=== PATIENT | male | born 1970 | race Caucasian/White ===

== ENCOUNTER 2022-01-23 21:02 | Outpatient (CLI) | payer OTHER, SELFPAY | END 2022-01-23 21:03 | disposition home or self-care (01) | LOC: AMB 03-16 19:43 | PROVIDERS: PCP Family Medicine; Visit Provider Internal Medicine | DX: S29.9XXA Unspecified injury of thorax, initial encounter (principal); V40.0XXA Car driver injured in collision with pedestrian or animal in nontraffic accident, initial encounter; Y92.410 Unspecified street and highway as the place of occurrence of the external cause | CPT/HCPCS: A0427; A0998 ==

== ENCOUNTER 2023-02-27 10:39 | Outpatient (CLI) | payer OTHER, SELFPAY | END 2023-02-27 10:40 | disposition home or self-care (01) | PROVIDERS: PCP Family Medicine; Visit Provider Family Medicine | DX: Z00.00 Encounter for general adult medical examination without abnormal findings (principal); I10 Essential (primary) hypertension; E78.5 Hyperlipidemia, unspecified; E03.9 Hypothyroidism, unspecified; Z12.5 Encounter for screening for malignant neoplasm of prostate | CPT/HCPCS: 80053; 80061; 84153; 84443 ==

== ENCOUNTER 2024-04-07 11:36 | Outpatient (CLI) | payer OTHER, SELFPAY | END 2024-04-07 11:37 | disposition home or self-care (01) | PROVIDERS: PCP Family Medicine; Visit Provider Family Medicine | DX: E78.2 Mixed hyperlipidemia (principal); E03.9 Hypothyroidism, unspecified; I10 Essential (primary) hypertension | CPT/HCPCS: 80048; 80061; 84439; 84443 ==

== ENCOUNTER 2024-09-18 11:43 | Outpatient (CLI) | payer OTHER, SELFPAY ==
--- NOTE | 2024-09-30 12:32 | W.PM.SLEEP ---
Sleep Study Details Details Interpreting Provider: Davis Date of Sleep Study: 09/18/24 Sleep Study Details: STUDY TYPE:? Home unattended ? BMI:? 43.6 ORDERING PROVIDER:? Davis INDICATION:? Concerned about sleep apnea ? SLEEP SUMMARY:? 388 minutes monitored RESPIRATORY SUMMARY:? AHI 48.9, low oxygen 70 50.4% of the study oxygen less than 90% snoring 79.4% PERIODIC LIMB MOVEMENTS OF SLEEP:? Not recorded CARDIAC:? Range 60-129, mean 84.9 beats per minute IMPRESSION:? Tachycardia noted during study further evaluation the heart may be indicated Severe obstructive sleep apnea with significant hypo oxygenation and significant obesity. Patient may have hypoventilation. RECOMMENDATION: In-lab titration for CPAP or BiPAP. Further cardiac evaluation may be indicated.
== END 2024-09-18 11:44 | disposition home or self-care (01) ==
PROVIDERS: PCP Family Medicine; Visit Provider Otolaryngology
DX: G47.33 Obstructive sleep apnea (adult) (pediatric) (principal); R00.0 Tachycardia, unspecified; E66.9 Obesity, unspecified
CPT/HCPCS: 95806

== ENCOUNTER 2024-10-17 16:01 | Emergency (ER) | payer OTHER, SELFPAY ==
[2024-10-17 16:12] VITALS: BP 128/78; PULSE 103; RESP 16; TEMP 36.3; O2SAT 96; BMI 42.2
[2024-10-17 16:42] LABS: Appearance Urine Clear (Clear)
--- NOTE | 2024-10-17 17:30 | CRLHL7_ITS ---
For Patients: As a result of the Century Cures Act, medical imaging exams and procedure reports are released immediately into your electronic medical record. You may view this report before your referring provider. If you have questions, please contact your health care provider. INDICATION: Right abdomen pain. TECHNIQUE: Ultrasound abdomen limited. Sonographic images of the right upper quadrant were obtained using nash-scale and color Doppler images. COMPARISON: None. FINDINGS: Liver: Diffusely hyperechoic hepatic parenchyma with a region of relative central isoechoic sparing. No suspicious masses. No intrahepatic biliary dilatation. Gallbladder: No stones or sludge. Normal wall thickness. No pericholecystic fluid. Common bile duct: 2 mm. Pancreas: Unremarkable, where visualized. Right kidney: Normal in size. Normal echotexture and cortex. No suspicious masses, stones, or hydronephrosis. IMPRESSION: Diffusely hyperechoic hepatic parenchyma, compatible with steatosis. As noted above, there is a region of isoechoic signal centrally within the liver, likely reflecting focal fatty sparing. Dictated by Juliano Arauz MD @ 10/17/2024 6:37:05 PM (Electronically Signed)
--- NOTE | 2024-10-17 17:38 | ED.GENADULT ---
HPI - General Adult General Date Seen: 10/17/24 Chief complaint: Abdominal Pain Stated complaint: abdominal pain Time Seen by Provider: 10/17/24 17:07 History of Present Illness HPI narrative: Patient is a 54-year-old male with underlying sleep apnea, hypertension, high cholesterol, tachycardia who is here with his family for evaluation of right-sided abdominal pain which started a couple of days ago. He says that he is sure it is a pulled muscle. The day before it started he had lifted heavy lawnmower. He does not remember specifically injuring it but symptoms started the next day. His is concerned because he has not had much energy in the past day or 2. She says that he slept 18 hours yesterday. She notes that he does sleep and nap a lot secondary to his suspected sleep apnea, but this seemed excessive. Initially when I asked him about nausea, loss of appetite etcetera, he denied those. However his says that he did note some nausea, and he then acknowledge that he has not yet eaten today(presents to the ER at 5:00 p.m.) because he has not had an appetite. He also acknowledges that this is unusual for him. He has not had a fever. He has had a little bit of urinary frequency but no dysuria. He denies abdominal surgeries. He does not smoke, drinks occasionally. Related Data Previous Rx's ?Medication ?Instructions ?Recorded atorvastatin 20 mg tablet 20 mg PO QPM #90 tabs 09/16/24 citalopram 40 mg tablet 40 mg PO QDAY #90 tabs 09/16/24 esomeprazole magnesium 20 mg 20 mg PO DAILY #90 caps 09/16/24 capsule,delayed release levothyroxine 175 mcg tablet 175 mcg PO QDAY #90 tabs 09/16/24 lisinopril 40 mg tablet 40 mg PO QDAY #90 tabs 09/16/24 phentermine 30 mg capsule 30 mg PO QDAY #90 caps 09/16/24 Allergies Allergy/AdvReac Type Severity Reaction Status Date / Time No Known Drug Allergies Allergy Verified 10/17/24 16:11 Review of Systems Status of ROS: Reports: 10 or more systems reviewed and unremarkable except as noted in History and below [facility] Medical History Temporal arteritis ?M31.6 - Other giant cell arteritis (ICD-10) Family History Unknown Diabetes Social History What is your current living situation?: I presently have a place to live Problems where you live: no known problems In the past 12 months, utilities in danger of being shut off: no In past 12 months, lack of transportation kept you from medical appts, meetings, work, or getting things needed for daily living: no In the past 12 mos, have been you worried that your food would run out before you had money to buy more?: never true In the past 12 mos, the food you bought just didn't last and you didn't have money to buy more?: never true Smoking Status: Never smoker How often do you have a drink containing alcohol: never AUDIT-C Alcohol total score: 0 Non-prescribed substance use: denies use How often does anyone, including family, friends and others, physically hurt you: never How often does anyone, including family, friends and others, insult or talk down to you: never How often does anyone, including family, friends and others, threaten you with harm: never How often does anyone, including family, friends and others, scream or curse at you: never Exam Narrative: Exam Narrative: Vital signs reviewed In general, alert, nontoxic med age male. He is significantly overweight. Head: Normocephalic, atraumatic. Eyes: Sclera clear. Pupils equal and reactive. ENT: Mucous membranes moist. Neck: Supple without adenopathy. Heart: Regular rate and rhythm without murmur. Lungs: Clear. No increased work of breathing, crackles or wheezes. Abdomen: Abdomen is obese, soft. Exam is somewhat limited by body habitus. He has right-sided abdominal tenderness, this is significantly above McBurney's point but slightly below the ribcage. He has a negative Andrews sign. He does not have any tenderness at McBurney's point. He does have a positive Rovsing's sign. Extremities: Well perfused, pulses intact. No significant edema. Neurologic: Alert, conversant. Speech fluent, face symmetric. Moves all extremities equally. Skin: Warm, dry well perfused. Affect: Normal. Const: Vital Signs, click to edit/add: Vital Signs - 24 hr 10/17/24 16:12 10/17/24 18:51 Temperature 97.4 F L 97.1 F L Pulse Rate [Pulse Oximeter] 103 H 88 Respiratory Rate 16 18 Blood Pressure [Ri ght Upper Arm] 128/78 129/86 Pulse Oximetry 96 95 Oxygen Delivery Me thod Room Air Room Air Course Course ED Course: Patient presents with some right-sided abdominal pain, mid upper right quadrant associated with anorexia today. Discussed with him that I think it is relatively unlikely this is muscular in origin given his abdominal exam, and that I think it is worthwhile to do an evaluation here to rule out other possible causes. Based on the location of his tenderness I did start with an ultrasound to evaluate his gallbladder. Will check some labs, declines need for anything for pain at this time. Right upper quadrant ultrasound is negative for gallstones or evidence of cholecystitis. He has fatty liver and an area of likely focal fatty sparing. Labs are notable for normal white blood cell count, mildly elevated CRP of 2 and half. Unremarkable metabolic panel. I elected to pursue CT scan to evaluate his appendix. I reviewed the CT scan, I did not see evidence of appendicitis. Radiology reads this as showing epiploic appendagitis. Discussed this diagnosis with the patient and his family. Recommended pain control at home with ibuprofen or Tylenol, discussed that this is typically self-limited and should improve over the next week. I gave the number for surgery Clinic if he finds that he is not improving with time. Return any time if he is feeling worse has new symptoms such as fevers, vomiting etcetera. Vital Signs Vital signs: Initial Vital Signs Temperature 97.4 F L 10/17/24 16:12 Temperature Source Temporal Artery Scan 10/17/24 16:12 Pulse Rate 103 H 10/17/24 16:12 Pulse Rhythm Regular 10/17/24 16:12 Respiratory Rate 16 10/17/24 16:12 Blood Pressure 128/78 10/17/24 16:12 Blood Pressure Mean 94 10/17/24 16:12 Blood Pressure Position Sitting 10/17/24 16:12 Pulse Oximetry 96 10/17/24 16:12 Oxygen Delivery Method Room Air 10/17/24 16:12 Vital Signs Temperature 97.4 F L 10/17/24 16:12 Pulse Rate 103 H 10/17/24 16:12 Respiratory Rate 16 10/17/24 16:12 Blood Pressure 128/78 10/17/24 16:12 Pulse Oximetry 96 10/17/24 16:12 Oxygen Delivery Method Room Air 10/17/24 16:12 Temperature 97.1 F L 10/17/24 18:51 Pulse Rate 88 10/17/24 18:51 Respiratory Rate 18 10/17/24 18:51 Blood Pressure 129/86 10/17/24 18:51 Pulse Oximetry 95 10/17/24 18:51 Oxygen Delivery Method Room Air 10/17/24 18:51 Medical Decision Making Lab Data Lab results reviewed: Yes I reviewed the patient's lab results Labs: Lab Results 10/17/24 10/17/24 Range/Units 16:16 17:38 WBC 9.41 (4.50-11.00) K/uL RBC 5.55 (4.30-5.90) m/uL Hgb 15.6 (13.5-17.5) gm/dL Hct 47.2 (37.0-53.0) % MCV 85 (80-100) fL MCH 28 (26-34) pg MCHC 33 (32-36) gm/dL RDW Coeff of Sonu 12.4 (11.5-15.5) % Plt Count 393 (140-440) K/uL Neut % (Auto) 67.7 (42.0-72.0) % Lymph % (Auto) 20.4 (20-44) % Barber % (Auto) 8.2 (0.0-11.0) % Eos % (Auto) 2.7 (0.0-7.0) % Baso % (Auto) 0.6 (0.0-3.0) % Neut # (Auto) 6.37 (1.7-7.0) K/uL Lymph # (Auto) 1.92 (0.90-2.90) K/uL Barber # (Auto) 0.80 (0.00-0.90) K/UL Eos # (Auto) 0.25 (0.00-0.50) K/uL Baso # (Auto) 0.06 (0.00-0.30) K/uL Abs Immat Gran (auto) 0.04 (0.00-0.30) K/uL Imm/Tot Granulo (auto) 0.4 % Sodium 137 (135-149) mmol/L Potassium 4.6 (3.6-5.1) mmol/L Chloride 99 (96-114) mmol/L Carbon Dioxide 34 H (20-32) mmol/L Anion Gap 4 L (7-15) mEq/L BUN 11 (7-30) mg/dL Creatinine 1.1 (0.5-1.5) mg/dL Estimated Creat Clear 63.54 Estimated GFR 79 ml/min Glucose 90 (60-115) mg/dL Calcium 9.8 (8.4-10.6) mg/dL Total Bilirubin 0.6 (0.1-1.5) mg/dL Direct Bilirubin 0.1 (0.0-0.5) mg/dL AST 37 H (12-35) U/L ALT 53 H (4-50) U/L Alkaline Phosphatase 60 (40-150) U/L C-Reactive Protein 2.3 H (0.5-1.0) mg/dL Total Protein 7.6 (6.0-8.3) g/dL Albumin 4.5 (3.3-5.0) g/dL Lipase 47 (23-300) U/L Urine Color Yellow (Yellow) Urine Appearance Clear (Clear) Urine pH 6.0 (5.0-8.5) Ur Specific [place] 1.025 (1.000-1.030) Urine Protein Negative (Negative) Urine Glucose (UA) Negative (Negative) Urine Ketones Negative (Negative) Urine Blood Trace-intact A (Negative) Urine Nitrite Negative (Negative) Urine Bilirubin Negative (Negative) Urine Urobilinogen 1.0 (0.2-1.0) Ur Leukocyte Esterase Negative (Negative) Urine RBC 0-2 (0-2) Urine WBC 0-2 (0-5) Ur Squamous Epith Cells None (None-Few) Urine Bacteria None (None) Imaging Data CT scan - abdomen: Attestation: I have reviewed the pertinent imaging results. Radiologist's impression: Patient: Waldo Hopper MR#: [id number] : 1970 Acct:[id number] Loc: ED Service Date: 10/17/[address]: Ordering Physician: Ronda Bailey M.D. Date of Service: 10/17/24 Procedure(s): CT abdomen pelvis w con Accession Number(s): [id number] cc: Ronda Bailey M.D.; Isaias Gomez M.D.~ For Patients: As a result of the Cures Act, medical imaging exams and procedure reports are released immediately into your electronic medical record. You may view this report before your referring provider. If you have questions, please contact your health care provider. INDICATION: Right upper quadrant pain. TECHNIQUE: CT abdomen and pelvis acquired with 120 cc Isovue 370 IV contrast. COMPARISON: Earlier same day abdominal ultrasound. FINDINGS: Lower chest: Unremarkable. Liver: Diffusely hypodense hepatic parenchyma, compatible with steatosis, with central fatty sparing. Gallbladder and bile ducts: Unremarkable. No stones or inflammation. No biliary dilatation. Pancreas: Unremarkable. No mass or inflammation. Spleen: Unremarkable. Normal in size. No masses. Adrenal glands: Unremarkable. No nodules. Kidneys: Unremarkable. No suspicious masses, stones, or hydronephrosis. GI tract: Unremarkable. Normal in caliber. No sign of mass or inflammation. Normal appendix. Vasculature: Abdominal aorta is normal in caliber. Mesenteric arteries are patent. Lymph nodes: No lymphadenopathy. Peritoneum/Abdominal Wall: Along the anterior aspect of the superior descending colon, there is an ovoid focus of fat density with a thin hyperdense rim, a central hyperdense dot, and mild surrounding fat stranding (2/78). No sign of mass or infiltration. No free air or significant free fluid. Pelvis: Unremarkable. Bones: Unremarkable for age. IMPRESSION: Acute epiploic appendagitis along the anterior aspect of the superior ascending colon. No other acute findings in the abdomen or pelvis. Please note that all CT scans at this facility use dose modulation, iterative reconstruction, and/or weight-based dosing when appropriate to reduce radiation dose to as low as reasonably achievable. Dictated by Juliano Arauz MD @ 10/17/2024 6:59:29 PM US - abdomen: Attestation: I have reviewed the pertinent imaging results. Radiologist's impression: Patient: WALDO HOPPER Facility: [facility] Site . Site : 1970 Study: US-Abdomen limited-10/17/2024 6:06:28 PM Ordering Physician: Leo Bond Final Report: INDICATION: Right abdomen pain. TECHNIQUE: Ultrasound abdomen limited. Sonographic images of the right upper quadrant were obtained using nash-scale and color Doppler images. COMPARISON: None. FINDINGS: Liver: Diffusely hyperechoic hepatic parenchyma with a region of relative central isoechoic sparing. No suspicious masses. No intrahepatic biliary dilatation. Gallbladder: No stones or sludge. Normal wall thickness. No pericholecystic fluid. Common bile duct: 2 mm. Pancreas: Unremarkable, where visualized. Right kidney: Normal in size. Normal echotexture and cortex. No suspicious masses, stones, or hydronephrosis. IMPRESSION: Diffusely hyperechoic hepatic parenchyma, compatible with steatosis. As noted above, there is a region of isoechoic signal centrally within the liver, likely reflecting focal fatty sparing. Discharge Plan Discharge Clinical Impression: Epiploic appendagitis Patient Disposition: Home, Self-Care Condition: Stable Instructions: Epiploic Appendagitis (ED) Additional Instructions: Your CT scan shows epiploic appendagitis, which is a generally self resolving problem. You can use ibuprofen, 400-600 mg 3 times daily as needed for pain. Pain should improve over the next week. If you are not improving at all over the next week, please follow-up with the General surgery Clinic, . Return to the ER for severe uncontrolled pain, vomiting, fevers or other worsening. Prescriptions: No Action atorvastatin 20 mg tablet 20 mg PO QPM Qty: 90 1RF citalopram 40 mg tablet 40 mg PO QDAY Qty: 90 1RF esomeprazole magnesium 20 mg capsule,delayed release(DR/EC) 20 mg PO DAILY Qty: 90 1RF levothyroxine 175 mcg tablet 175 mcg PO QDAY Qty: 90 1RF lisinopril 40 mg tablet 40 mg PO QDAY Qty: 90 1RF phentermine 30 mg capsule 30 mg PO QDAY Qty: 90 0RF Rx Instructions: must administer 2 hours after breakfast Follow Up/Referrals: Isaias Gomez MD [Primary Care Provider, Family Practice] Stand Alone Forms: Evino Info Instructions
[2024-10-17 17:45] LABS: Hematocrit 47.2 % (37.0-53.0); Hemoglobin* 15.6 gm/dL (13.5-17.5); Immature Granulocytes Abs Auto 0.04 K/uL (0.00-0.30); Immature Granulocytes Pct Auto 0.4 %; Lymphocytes Absolute Auto 1.92 K/uL (0.90-2.90); Mean Corpuscular HGB Conc 33 gm/dL (32-36); Mean Corpuscular Hemoglobin 28 pg (26-34); Mean Corpuscular Volume 85 fL (80-100); RDW Coefficient of Variation % 12.4 % (11.5-15.5); Red Blood Count 5.55 m/uL (4.30-5.90); White Blood Count* 9.41 K/uL (4.50-11.00)
[2024-10-17 17:47] LABS: Slide Review Reflex No
[2024-10-17 17:57] LABS: Albumin* 4.5 g/dL (3.3-5.0); Chloride* 99 mmol/L (96-114); Sodium* 137 mmol/L (135-149)
[2024-10-17 17:58] LABS: Potassium* 4.6 mmol/L (3.6-5.1)
[2024-10-17 18:00] LABS: Alanine Aminotransferase* 53 U/L (4-50); Anion Gap 4 mEq/L (7-15); Aspartate Amino Transferase* 37 U/L (12-35); Blood Urea Nitrogen* 11 mg/dL (7-30); Carbon Dioxide* 34 mmol/L (20-32); Creatinine* 1.1 mg/dL (0.5-1.5); Est. Creatinine Clearance* 63.54; Estimated Glomerular Filt Rate 79 ml/min
[2024-10-17 18:01] LABS: Alkaline Phosphatase* 60 U/L (40-150); Bilirubin Direct* 0.1 mg/dL (0.0-0.5); Bilirubin Total* 0.6 mg/dL (0.1-1.5); Calcium* 9.8 mg/dL (8.4-10.6); Glucose* 90 mg/dL (60-115); Total Protein* 7.6 g/dL (6.0-8.3)
--- NOTE | 2024-10-17 18:12 | CRLHL7_ITS ---
For Patients: As a result of the Century Cures Act, medical imaging exams and procedure reports are released immediately into your electronic medical record. You may view this report before your referring provider. If you have questions, please contact your health care provider. INDICATION: Right upper quadrant pain. TECHNIQUE: CT abdomen and pelvis acquired with 120 cc Isovue 370 IV contrast. COMPARISON: Earlier same day abdominal ultrasound. FINDINGS: Lower chest: Unremarkable. Liver: Diffusely hypodense hepatic parenchyma, compatible with steatosis, with central fatty sparing. Gallbladder and bile ducts: Unremarkable. No stones or inflammation. No biliary dilatation. Pancreas: Unremarkable. No mass or inflammation. Spleen: Unremarkable. Normal in size. No masses. Adrenal glands: Unremarkable. No nodules. Kidneys: Unremarkable. No suspicious masses, stones, or hydronephrosis. GI tract: Unremarkable. Normal in caliber. No sign of mass or inflammation. Normal appendix. Vasculature: Abdominal aorta is normal in caliber. Mesenteric arteries are patent. Lymph nodes: No lymphadenopathy. Peritoneum/Abdominal Wall: Along the anterior aspect of the superior descending colon, there is an ovoid focus of fat density with a thin hyperdense rim, a central hyperdense dot, and mild surrounding fat stranding (2/78). No sign of mass or infiltration. No free air or significant free fluid. Pelvis: Unremarkable. Bones: Unremarkable for age. IMPRESSION: Acute epiploic appendagitis along the anterior aspect of the superior ascending colon. No other acute findings in the abdomen or pelvis. Please note that all CT scans at this facility use dose modulation, iterative reconstruction, and/or weight-based dosing when appropriate to reduce radiation dose to as low as reasonably achievable. Dictated by Juliano Arauz MD @ 10/17/2024 6:59:29 PM (Electronically Signed)
[2024-10-17 18:51] VITALS: BP 129/86; PULSE 88; RESP 18; TEMP 36.2; O2SAT 95
== END 2024-10-17 19:38 | disposition home or self-care (01) ==
PROVIDERS: Emergency Provider Emergency Medicine; PCP Family Medicine
DX: K63.89 Other specified diseases of intestine (principal); R10.11 Right upper quadrant pain; R11.0 Nausea; G47.30 Sleep apnea, unspecified; I10 Essential (primary) hypertension; E78.5 Hyperlipidemia, unspecified; R00.0 Tachycardia, unspecified
CPT/HCPCS: 36415; 74177; 76705; 80048; 80076; 81001; 83690; 85025; 86140; 99284; 99285; Q9967

== ENCOUNTER 2024-12-17 14:24 | Outpatient (CLI) | payer OTHER, SELFPAY | END 2024-12-17 14:25 | disposition home or self-care (01) | LOC: LKVREF 14:24 | PROVIDERS: PCP Family Medicine; Visit Provider Otolaryngology | DX: G25.81 Restless legs syndrome (principal) | CPT/HCPCS: 82728 ==